=== PATIENT | female | born 1985 | race Two or more races ===

== ENCOUNTER 2016-10-25 06:59 | Inpatient (IN) | payer MEDICAID ==
[~2016-10-25] VITALS: Ht 167.6 cm; Wt 98.2 kg
--- NOTE | ~2016-10-25 | OR ---
PATIENT'S NAME: [facility] AGE: 30 Y [address] ROOM: [place] [id number] LOCATION: GOBS ADMIT DATE: 10/25/2016 OR/Procedure Report DISCHARGE DATE: FAMILY PHYSICIAN: PHYSICIAN, NO ATTENDING PHYSICIAN: LEODAN CARLIN SURGEON: Leodan Carlin MD POLE FRAMER MACHINE: DATE OF PROCEDURE: 10/25/2016 DATE OF DELIVERY: 10/25/2016. PREOPERATIVE DIAGNOSES: 1. Intrauterine at 40 weeks and 4 days. 2. Elective induction of labor. POSTOPERATIVE DIAGNOSES: 1. Intrauterine at 40 weeks and 4 days. 2. Elective induction of labor. PROCEDURES PERFORMED: Spontaneous vaginal delivery over intact perineum. ANESTHESIA: Epidural. FINDINGS: Viable female with Apgars of 8 and 9 and weight pending. Placenta was intact with three-vessel cord. First-degree perineal laceration that extended up the left labia. ESTIMATED BLOOD LOSS: 300 mL. COMPLICATIONS: None. INDICATIONS: The patient is a 30-year-old G3, P2-0-0-2 with intrauterine at 40 weeks and 4 days, who desired induction of labor. She was 1 cm to 2 cm on presentation. She had 25 mcg of Cytotec placed vaginally. She then progressed to 2 cm to 3 cm, and had artificial rupture of membranes for four hours after Cytotec was placed. She had Pitocin started for augmentation. She progressed throughout labor without complications and started maternal expulsive efforts. DESCRIPTION OF PROCEDURE: The patient was placed in dorsal lithotomy position. She was then prepped and draped in the usual fashion. With maternal expulsive efforts, head was delivered in the JONATHAN position. Nuchal cord was noted, but could not be reduced. Anterior shoulder was then delivered, followed by the remainder of the fetus. The was placed on the mother's abdomen. Cord was clamped and cut. The placenta then delivered PATIENT'S NAME: [facility] AGE: 30 Y [address] ROOM: [place] [address] LOCATION: GOBS ADMIT DATE: 10/25/2016 OR/Procedure Report DISCHARGE DATE: FAMILY PHYSICIAN: PHYSICIAN, NO ATTENDING PHYSICIAN: LEODAN CARLIN spontaneously intact with three-vessel cord. Cord blood was obtained. The cervix, vagina, and perineum were inspected. Then, a first-degree laceration was noted that extended up the left labia. It was repaired in the usual fashion with 3-0 Vicryl. Instrument, sponge, and needle counts were correct at the conclusion of the case. DISPOSITION: Mom was stable. Baby was in room with Mom. MD MYRIAM SHRESTHA/lauryn /[id number] d: 10/25/162319 t: 10/28/16 1714, OPERATIVE SUMMARY
[2016-10-25] MEDS ORDERED: PRENATAL 1+1)(P1 TAB PO (07:53)
[2016-10-25 07:55] LABS: BASOPHIL % 0.1 %; EOSINOPHIL # 0.1 K/uL (0.0-0.5); EOSINOPHIL % 1.9 %; HEMATOCRIT 37.2 % (33.0-46.0); IMMATURE GRANULOCYTE % 0.1 %; LYMPHOCYTE # 1.2 K/uL (0.8-4.0); LYMPHOCYTE % 15.8 %; MCH 28.3 pg (27.0-34.0); MCHC 32.3 gm/dL (32.0-36.5); MCV 87.7 fl (83.0-98.0); MONOCYTE # 0.6 K/uL (0.0-1.0); MONOCYTE % 7.4 %; MPV 12.2 fl (9.4-12.4); NEUTROPHIL # (ANC) 5.6 K/uL (1.8-7.8); NEUTROPHIL % 74.7 %; NRBC % 0 /100WBC (0-0.00); PLATELET COUNT 184 K/uL (150-450); RBC 4.24 M/uL (3.50-5.50); RDW-CV 14.6 % (11.9-14.6); WBC 7.5 K/uL (4.0-11.0)
[2016-10-26 04:21] LABS: BASOPHIL % 0.2 %; EOSINOPHIL # 0.2 K/uL (0.0-0.5); EOSINOPHIL % 1.7 %; HEMATOCRIT 35.5 % (33.0-46.0); HEMOGLOBIN 11.4 g/dL (11.0-15.0); IMMATURE GRANULOCYTE % 0.2 %; LYMPHOCYTE % 19.3 %; MCH 28.2 pg (27.0-34.0); MCHC 32.1 gm/dL (32.0-36.5); MCV 87.9 fl (83.0-98.0); MONOCYTE # 0.9 K/uL (0.0-1.0); MONOCYTE % 8.7 %; MPV 12.5 fl (9.4-12.4); NEUTROPHIL # (ANC) 7.1 K/uL (1.8-7.8); NEUTROPHIL % 69.9 %; NRBC % 0 /100WBC (0-0.00); PLATELET COUNT 180 K/uL (150-450); RBC 4.04 M/uL (3.50-5.50); RDW-CV 14.5 % (11.9-14.6); WBC 10.1 K/uL (4.0-11.0)
--- NOTE | 2016-10-26 05:42 | NUR ---
Last VS: T:98.5 P:81 R: 14 BP: 119/74 Pain ratin. Last pain med: Percocet Medicated at: 0025 Effective: Yes Breasts: soft, Nipples: inverted ,tender Fundus: firm, even, midline Lochia: rubra, small Epis/Perineum: 1st degree lac Voiding well: voided x 2 since cath pulled Significant event: VSS, uses dermoplast, lanolin. Independent with cares
--- NOTE | 2016-10-26 10:25 | NUR ---
[id number] I supervised the [facility] PN student nurse providing patient cares.
[2016-10-26] MEDS ORDERED: SURFAK240 MG PO (15:00)
[2016-10-26] MEDS ORDERED: MOTRIN800 MG PO (15:00)
[2016-10-26] MEDS ORDERED: NORCO 5-325 TA1 EACH PO (15:00)
--- NOTE | 2016-10-26 18:00 | NUR ---
10/26/16: Needs assist w/ . Nipples inverted. Breastshells given and in Bra. Using medula shield for . Using Donor milk after . Vss.
== END 2016-10-27 13:33 | disposition disaster alternative care site (69) | DRG 775 ==
LOC: GOBM 06:59 → GOBS 06:59 → GOBM 07:00 → GOBS 15:41
PROVIDERS: ADMIT Obstetrics & Gynecology
PROC: 10E0XZZ Delivery of Products of Conception, External Approach (ICD-10-PCS; principal; 2016-10-25)
PROC: 10907ZC Drainage of Amniotic Fluid, Therapeutic from Products of Conception, Via Natural or Artificial Opening (ICD-10-PCS; principal; 2016-10-25)
PROC: 0HQ9XZZ Repair Perineum Skin, External Approach (ICD-10-PCS; principal; 2016-10-25)
PROC: 3E0P7GC Introduction of Other Therapeutic Substance into Female Reproductive, Via Natural or Artificial Opening (ICD-10-PCS; principal; 2016-10-25)
DX: O48.0 Post-term pregnancy (principal); O69.81X0 Labor and delivery complicated by cord around neck, without compression, not applicable or unspecified; O70.0 First degree perineal laceration during delivery; Z3A.40 40 weeks gestation of pregnancy; Z37.0 Single live birth
CPT/HCPCS: J2590; J3010; J7120